=== PATIENT | female | born 1950 | race Caucasian/White ===

== ENCOUNTER 2024-07-04 07:14 | Day surgery (SDC) | payer MEDICARE, BC, SELFPAY ==
[2024-07-04 07:25] VITALS: BP 160/84; PULSE 74; RESP 16; TEMP 36.8; O2SAT 98; BMI 25.2
--- NOTE | 2024-07-04 07:35 | W.PM.H&PU ---
History & Physical Update History & Physical Update H&P Reviewed and patient assessed: No changes noted
[2024-07-04] MEDS: SODIUM CHLORIDE 0.9 % (FLUSH) 10 ML SYRINGE IVF (07:45)
[2024-07-04] MEDS: LACTATED RINGERS 1000 ML 1,000 ML 100 ML IV (07:50)
--- NOTE | 2024-07-04 08:09 | P.PCN_ITS ---
Procedure Note Time Seen by Provider: : Date Seen: 07/04/24 Date of procedure: 07/04/24 Will [facility] bill your pro fee for this procedure?: Yes Procedure: Preoperative diagnosis: 74 year-old with postmenopausal bleeding Postoperative diagnosis: Same Procedure: Hysteroscopy, Dilation and Curettage using the Truclear incisor under ultrasound guidance Anesthesia: Conscious sedation, paracervical block. Surgeon: Bonita Sher MD Floating Derrick Operator: None Estimated blood loss: 1 mL IV Fluid: 600 mL Specimen: Endometrial curettings to pathology. Findings: Exam under anesthesia: Uterus: Anteverted position, less than 8 wee k sized, mobile, with no masses or nodularity palpable. Uterus sounded to 8 cm. No adnexal masses or nodularity palpable. On hysteroscopy: 2 polypoid masses otherwise normal endometrium. Procedure: Danielle was taken to the operating operating room more conscious sedation was found to be adequate. The patient was placed on in the dorsal lithotomy position and an exam under anesthesia was performed with findings stated above. She was then prepped and draped in a normal sterile manner. A bivalve speculum was placed in the vagina. The cervix appears nulliparous. Otherwise no abnormalities. The paracervical block was placed using 0.5% Marcaine, 10 mL was injected at the 4 and 8 o'clock positions on the cervix. a Julian catheter was placed and the bladder was backfilled with 450 mL of saline. During the dilation of the cervix the procedure was monitored under ultrasound to verify that the dilation was into the endometrium and prevent perforation. The anterior lip of the cervix was grasped with a single toothed tenaculum. The cervix dilated to Hegar 6. The uterus sounded to 8 cm. The Truclear hysteroscope was advanced into the uterus. A diagnostic hysteroscopy was performed with normal saline as the insufflation medium. Findings are stated above. The Truclear incisor was then advanced through the camera. The curettage was performed with the incisor over an approximately 5 minutes. The incisor was then removed. The endometrial cavity appeared normal. Saline deficit at the end of the procedure 210 mL. Total saline used 745 mL. Nothing was needed for hemostasis. The hysteroscope, Allis clamp and speculum were removed from the vaginal canal. The patient tolerated the procedure well. Sponge, lap and instrument counts were correct x2 at the end of the procedure. The patient was taken to the recovery area in stable condition.
[2024-07-04] MEDS: BUPIVACAINE 0.5% 30 ML INJECTION (09:00)
[2024-07-04 09:20] VITALS: BP 129/72; PULSE 70; RESP 18; TEMP 36.3; O2SAT 96
--- NOTE | 2024-07-04 09:28 | W.ANESCHARGE ---
Anesthesia Charges Start Date/Time Anesthesia Start Date: 07/04/24 Anesthesia Start Time: 08:42 Stop Date/Time Anesthesia Stop Date: 07/04/24 Anesthesia Stop Time: 09:24
[2024-07-04 09:30] VITALS: BP 128/78; PULSE 71; RESP 18; O2SAT 96
[2024-07-04 09:45] VITALS: BP 140/105; PULSE 60; RESP 18; O2SAT 99
[2024-07-04 10:00] VITALS: BP 164/89; PULSE 53; RESP 18; TEMP 36.8; O2SAT 100
== END 2024-07-04 10:00 | disposition home or self-care (01) ==
PROVIDERS: PCP Family Medicine; Visit Provider Obstetrics & Gynecology
PROC: 0UDB8ZZ Extraction of Endometrium, Via Natural or Artificial Opening Endoscopic (ICD-10-PCS; CPT 58558; principal; 2024-07-04 08:30)
DX: N95.0 Postmenopausal bleeding (principal); N84.0 Polyp of corpus uteri
CPT/HCPCS: 58558; 00952; 76998; 88305; C1782; J0665; J1100; J1885; J2250; J2405; J2704; J3010; J7120